=== PATIENT | female | born 1965 | race Caucasian/White ===

== ENCOUNTER 2018-09-27 18:02 | Emergency (ER) | payer MEDICAID ==
[~2018-09-27] VITALS: Ht 167.6 cm; Wt 160.0 kg
[~2018-09-27 18:02] MED LIST: CEPH500T6; DIPH1TAB; LACR35O OP; PRED20TA PO; VALA500T4 PO; [UNRECOGNIZED DRUG - CODE]
[2018-09-27 18:16] VITALS: BP 141/72; PULSE 66; RESP 20; Ht 167.6 cm; Wt 160.0 kg
--- NOTE | 2018-09-27 18:36 | ERD ---
ER Documentation Chief Complaint Chief Complaint Left eye watery HPI The patient is a 53-year-old female, presenting to the ER because of right eye lid drooping and eye watery for the last 3 days, complains of minimal headache today, denies blurred vision, facial pain, neck pain, chest pain, dyspnea, abdominal pain, vomiting, dysuria, diarrhea. She does not smoke or drink Past medical history history: None Past surgical history: Benign abdominal tumor removal ROS All systems reviewed and are negative except as per history of present illness. Medications Home Meds Active Scripts Mineral Oil/Lanolin Oil (Lacri-Lube) 3.5 Gm Oint, 1 APPLIC OP Q2H for 10 Days, #1 EA Prov:GRACY WEI MD 09/27/18 Prednisone* (Prednisone*) 20 Mg Tab, 60 MG PO DAILY for 5 Days, TAB Prov:GRACY WEI MD 09/27/18 valACYclovir Hcl* (Valtrex*) 500 Mg Tablet, 1000 MG PO TID for 7 Days, TAB Prov:GRACY WEI MD 09/27/18 Reported Medications Neomy Sulf/Polymyx B Sulf/Pram (Antibiotic Cream) 14.2 Gm Cream.gm. 10/13/09 Diphenhydra/Phenyleph/Acetamin (Benadryl Allergy & Sinus Caplt) 1 Tab Tablet 10/13/09 Cephalexin Monohydrate (Cephalexin) 500 Mg Tablet 10/13/09 [none] No Conflict Check 10/08/09 Allergies Allergies: Coded Allergies: No Known Allergies (Verified Allergy, Mild, 10/13/09) PMhx/Soc History of Surgery: Yes (tumor removed in abdomen) Anesthesia Reaction: No Hx Neurological Disorder: No Hx Respiratory Disorders: No Hx Cardiac Disorders: No Hx Psychiatric Problems: No Hx Miscellaneous Medical Probl: No Hx Alcohol Use: No Hx Substance Use: No Hx Tobacco Use: No Smoking Status: Never smoker Physical Exam Vitals Vital Signs Date Temp Pulse Resp B/P (MAP) Pulse Ox O2 O2 Flow FiO2 Time Delivery Rate 09/27/18 98.3 66 20 141/72 98 18:16 (95) Physical Exam Const: No acute distress. Head: Atraumatic. Eyes: Normal Conjunctiva. ENT: Normal External Ears, Nose and Mouth. Unable to close the right eye completely, right facial droop Neck: Full range of motion. No meningismus. Resp: Clear to auscultation bilaterally. Cardio: Regular rate and rhythm. Abd: Soft, non distended, normal bowel sounds, non tender. Skin: No petechiae or rashes. Back: No midline or flank tenderness. Ext: No cyanosis, or edema. Neur: Awake and alert. No focal deficit Psych: Normal Mood and Affect. Procedures/MDM [place] [id number] Radiology Main Line: [phone] DIAGNOSTIC IMAGING REPORT Patient: SHEELA KEYES : 1965 Age: 53 Sex: F MR #: [id number] DOS: 09/27/18 1850 Ordering MD: GRACY WEI MD Location: [facility] Room/Bed: PROCEDURE: Noncontrast CT Head. CLINICAL INDICATION: Headache. TECHNIQUE: Noncontrast CT of the head was obtained. The administered radiation dose was CTDI vol = 38.97 mGy, DLP = 634.23 mGy-cm. One or more of the following dose reduction techniques were used: Automated exposure control, Adjustment of the mA and/or kV according to patient size, or Use of iterative reconstruction technique. DICOM images are available. COMPARISON: There are no similar studies submitted for comparison. FINDINGS: There is a right sided earing causing streak artifact mildly limiting evaluation. The ventricles and sulci are within normal limits. There is no loss of matson-white differentiation to suggest acute territorial infarction. There is no acute intracranial hemorrhage or extra-axial fluid collection. There is no mass effect. No midline shift is identified. The orbits are within normal limits. The paranasal sinuses are well aerated. No destructive osseous lesion is identified. IMPRESSION: There is a right sided earing causing streak artifact mildly limiting evaluation. No acute intracranial hemorrhage or extra-axial fluid collection. Further findings as detailed above. RPTAT: HVF .Fermin Fischer MD, Date Time Electronically viewed and signed by .Fermin Fischer MD, on 09/27/2018 19:39 .F/ CC: GRACY WEI MD [id number] MEDICAL MAKING DECISION: The patient is a 53-year-old female, presenting with acute Winn's palsy, is stable for outpatient follow-up The differential diagnoses considered include but are not limited to subarachnoid hemorrhage, occult trauma, CVA, meningitis, encephalitis, hypertension, tension, migraine, cluster, narcotic withdrawal, cervical spine disease. Departure Diagnosis: Primary Impression: Winn palsy Condition: Good Comments He was discharged with prednisone, Valtrex, and Lacri-Lube I discussed the findings with the patient. I advised the patient to follow-up with the primary physician in about 1-2 days, sooner if needed and return if any concern. Disclaimer: Inadvertent spelling and grammatical errors are likely due to EHR/dictation software use and do not reflect on the overall quality of patient care. Also, please note that the electronic time recorded on this note does not necessarily reflect the actual time of the patient encounter. GRACY WEI MD Sep 27, 2018 18:36
== END 2018-09-27 20:16 | disposition home or self-care (01) ==
LOC: FTE 18:02
DX: G51.0 Bell's palsy (principal)
CPT/HCPCS: 70450; Z7502